=== PATIENT | male | born 1980 | race Caucasian/White ===

== ENCOUNTER 2024-10-25 11:38 | Emergency (ER) | payer MEDICARE, MEDICAID, SELFPAY ==
[2024-10-25 11:46] VITALS: BP 138/81; PULSE 78; RESP 18; TEMP 36.7; O2SAT 96
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
[2024-10-25 12:16] VITALS: PULSE 84; RESP 16; O2SAT 98; BMI 34.7
[2024-10-25 12:34] LABS: Collection Type, Urine Voided; Squamous Epithelial Cell,Urine 0 /hpf (0-5)
[2024-10-25 12:38] LABS: Bilirubin,Urine Negative (Negative); Blood,Urine Negative (Negative); Clarity,Urine Clear (Clear/Hazy); Color,Urine Yellow (Lt Yel-Yel); Culture Indicated,Urine Not Indicated; Glucose, Urine Negative (Negative); Ketones,Urine Negative (Negative); Leukocyte Esterase,Urine Negative (Negative); Nitrite,Urine Negative (Negative); PH,Urine 6.5 (5.0-7.0); Protein,Urine Trace (Neg - Trace); RBC,Urine 1 /hpf (0-3); Specific Gravity,Urine 1.031 (1.001-1.035); Urobilinogen,Urine 2.0 mg/dL (0.0-1.0); WBC,Urine 1 /hpf (0-5)
[2024-10-25 12:46] LABS: Amphetamine/Methamp Scrn,U Positive (Negative); Barbiturate Screen,Urine Negative (Negative); Benzodiazepines Screen,Urine Negative (Negative); Benzoylecgonine Screen, Ur Negative (Negative); Fentanyl Screen,Urine Negative (Negative); Opiate Screen,Urine Negative (Negative); THC Screen,Urine Positive (Negative)
[2024-10-25 12:48] LABS: Basophils # (Auto) 0.0 Thou/mm3 (0.0-0.2); Basophils % (Auto) 0 % (0-2.5); Eosinophils # (Auto) 0.1 Thou/mm3 (0.0-0.5); Eosinophils % (Auto) 1 % (0-10); Hematocrit 38.6 % (41.0-53.0); Hemoglobin 13.7 g/dL (13.5-16.0); Immature Granulocytes Auto 0.02 Thou/mm3 (0.00-0.00); Lymphocytes # (Auto) 1.8 Thou/mm3 (1.0-4.8); Lymphocytes % (Auto) 24 % (10-50); Mean Corpuscular HGB Conc 35.5 g/dl (31.0-37.0); Mean Corpuscular Hemoglobin 31.1 pg (25.0-35.0); Mean Corpuscular Volume 88 fL (80-100); Monocytes # (Auto) 0.6 Thou/mm3 (0.0-0.8); Monocytes % (Auto) 8 % (0-12); Neutrophils # (Auto) 4.9 Thou/mm3 (1.8-7.7); Neutrophils % (Auto) 66 % (37-80); Nucleated Red Blood Cell # 0.00 Thou/mm3 (0.00-0.00); Nucleated Red Blood Cell % 0 /100 WBC (0); Platelet Count 232 Thou/mm3 (140-440); RDW Standard Deviation 42.0 fL (35.1-43.9); Red Blood Count 4.41 Miln/mm3 (4.50-5.90); White Blood Count 7.5 Thou/mm3 (3.8-10.6)
[2024-10-25 13:07] LABS: Alanine Aminotransferase 60 U/L (10-49); Albumin, Serum 4.2 gm/dL (3.5-5.0); Albumin/Globulin Ratio 1.8 (1.2-2.2); Alcohol, Blood Medical < 10.0 mg/dL (0-10.0); Alkaline Phosphatase 100 U/L (46-116); Anion Gap 6 (7-16); Aspartate Amino Transferase 56 U/L (0-34); BUN/Creatinine Ratio 15 Ratio (12-20); Bilirubin,Total 1.1 mg/dL (0.3-1.2); Blood Urea Nitrogen 12 mg/dL (9-23); Calcium 8.6 mg/dL (8.3-10.6); Calcium (Corrected) 8.6 mg/dL (8.5-10.1); Carbon Dioxide 24.3 mMol/L (20.0-31.0); Chloride 111 mMol/L (98-107); Creatinine (Component) 0.8 mg/dL (0.6-1.3); Estimated Creatinine Clearance 155.0 mL/min (>60); Globulin 2.4 gm/dL (2.3-3.5); Glucose 101 mg/dL (74-106); Osmolality,Calculated 280 (275-295); Potassium 4.1 mMol/L (3.4-5.1); Sodium 141 mMol/L (136-145); Total Protein 6.6 gm/dL (5.7-8.2); eGFR > 60 See Note
--- NOTE | 2024-10-25 13:33 | PC.CC ---
Patient is a 44 year-old male BIBA from [facility] on a 5150-hold for [facility] Disabled. Patient will have a mental health evaluation upon being medically cleared. It was reported that patient's toxicology was positive for marijuana and methamphetamine.
[2024-10-25] MEDS: AMOXICILLIN/POT CLAV 875 TABLET 1 TAB PO (14:18)
[2024-10-25] MEDS: NICOTINE PATCH 14 MG/24 HR PATCH.TD24 TOP (14:18)
--- NOTE | 2024-10-25 16:30 | PC.NURSE ---
Patient provided with sandwich and juice.
[2024-10-25 16:43] VITALS: BP 146/87; PULSE 103; RESP 16; TEMP 36.8; O2SAT 98
--- NOTE | 2024-10-25 17:10 | PC.NURSE ---
Spoke with Nandini cooper at [facility] gave her report on patient for possible acceptance to their facility.
[2024-10-25 19:30] VITALS: BP 138/82; PULSE 98; RESP 18; TEMP 36.8; O2SAT 99
[2024-10-25] MEDS: OLANZapine INJ 10 MG, Sterile Water 2.1 ML IM (20:47)
--- NOTE | 2024-10-25 20:47 | EKG_ITS ---
[facility] Test Date: 2024-10-25 Pat Name: EUSEBIA LAMB Department: Room: - Gender: Male Machine Tech: : 1980 Requested By: Reymundo Nelson Order Number: [id number] Reading MD: Reymundo Nelson Measurements Intervals [place] Rate: 97 P: 45 KS: 136 QRS: 57 QRSD: 88 T: 57 QT: 335 QTc: 426 Interpretive Statements SINUS RHYTHM No previous ECG available for comparison /store/S0/[id number]/ecg/[id number].pdf
[2024-10-25 22:30] VITALS: BP 135/78; PULSE 92; RESP 18; TEMP 36.7; O2SAT 98
--- NOTE | 2024-10-25 23:48 | EDNOTE_ITS ---
Emergency Room Addendum <Sonja Calix - Last Filed: 10/25/24 23:50> Addendum Narrative: I took over the care from Reymundo Gamino PA-C, at 11 PM on 10/25/24. See previous notes for complete H & P and ED course. Pending evaluation by our ED Astronaut Mission Specialist in the morning. At 6 AM on 10/25/2024, the care of the patient was transferred to Dr. Perales. During my watch, the patient remained stable. Jose Raul Abreu MD <Jose Raul Abreu MD - Last Filed: 10/26/24 01:47> Addendum Narrative: I took over the care from Reymundo Olivarez PA-C at 11 PM on 10/25/24. See previous notes for complete H & P and ED course. Pending evaluation by our ED Astronaut Mission Specialist in the morning. At 6 AM on 10/25/2024, the care of the patient was transferred to Dr. Perales. During my watch, the patient remained stable. Jose Raul Abreu MD
--- NOTE | 2024-10-26 06:27 | EDNOTE_ITS ---
Emergency Room Addendum Addendum Narrative: 0600: Care assumed from Dr. Abreu, the previous shift emergency physician. Past medical, surgical, social and family history reviewed. Vitals and home medications reviewed. I will assume the care of the patient at this time, pending mental health evaluation. Patient is medically cleared for psychiatric evaluation. Please refer to the emergency department record for history and examination from initial visit.? The patient was placed in ED observation care at 10/26/2024 at 0600 hours. The patient was placed in ED observation care pending mental health evaluation. Then, [facility] placed her on 5150 hold and now on observation care because of undifferentiated decompensated behavioral health evaluation, no behavioral health bed available. The patients past medical history, social history, and family history were reviewed. The plan of care will include serial examinations. While in ED observation the patient will have access to water, food, and personal hygiene. If the patient takes home medication(s), they will be continued in ED observation. Physical exam by me shows patient under no acute distress at this time. 0759: [facility] placed the patient on a 5150 hold, pending placement. Patient arrived as a 5150 hold and 5150 hold will be upheld and 5150 packet will be completed and sent out to all adult accepting LPS Facilities. 0830: Patient has been accepted to [facility]. ETA is 1100 hours. 1030: EMS here to pick the patient and transport to [facility]. ED observation care ended at 10/26/2024 at 1030 hours.
--- NOTE | 2024-10-26 07:18 | PC.NURSE ---
Received report from Charity RIOS and assumed care of patient. Patient sleeping in bed with no signs of distress nor complaints at this time.
--- NOTE | 2024-10-26 08:01 | PC.CC ---
Patient is a 44 year-old male who presents to the hospital on a 5150 hold-DTS. Hold reads, Pt is displaying blizzard behaviors and responding to outside stimuli. Pt is a site and release. 5150 hold [facility]. 5150 hold will be upheld and 5150 packet will be completed and sent out to all adult accepting LPS Facilities.
--- NOTE | 2024-10-26 08:56 | PC.CC ---
Monalisa JAIN received a call from [facility] from [facility]. [facility] provided acceptance information. Accepting provider is Dr. Bertha Crum. Patient was provided with accepting information to [place]. [facility] provided accepting information to Dr. Perales, orthopedically impaired teacher Chayo, and bedside RN Dylan.
[2024-10-26 10:15] VITALS: BP 140/93; PULSE 83; RESP 18; TEMP 36.6; O2SAT 99
--- NOTE | 2024-10-26 10:26 | PC.NURSE ---
REPORT GIVEN TO AMAN RIOS AT [facility]
== END 2024-10-26 10:25 ==
PROVIDERS: Physician Assistant Medical; Emergency Provider Emergency Medicine
DX: F23 Brief psychotic disorder (principal); F15.10 Other stimulant abuse, uncomplicated; L03.113 Cellulitis of right upper limb
CPT/HCPCS: 36415; 80053; 80307; 80320; 81001; 85025; 93005; 96127; 96372; 99284; A4216; J2358; A9270; G0480; J2359